=== PATIENT | male | born 1985 ===

== ENCOUNTER 2017-04-04 00:20 | Emergency (ER) | payer OTHER, MEDICAID ==
[2017-04-04 00:26] VITALS: BP 118/78; PULSE 82; RESP 16; TEMP 98.2; O2SAT 97
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
== END 2017-04-04 03:47 | disposition home or self-care (01) ==
LOC: H.ER 00:20
DX: S80.11XA Contusion of right lower leg, initial encounter (principal); M54.9 Dorsalgia, unspecified; V43.52XA Car driver injured in collision with other type car in traffic accident, initial encounter; Y92.410 Unspecified street and highway as the place of occurrence of the external cause

== ENCOUNTER 2017-09-21 08:06 | Day surgery (SDC) | payer MEDICAID ==
[2017-09-21] MEDS ORDERED: Lactated Ringer's 1,000 ML IV ONE (08:28)
[2017-09-21 08:45] VITALS: TEMP 96.8
[2017-09-21] MEDS ORDERED: Propofol 10 mg/ml Inj (20 ML) ONE (08:49)
[2017-09-21] MEDS ORDERED: Midazolam 2 MG/2 ML VIAL ONE (08:49)
[2017-09-21 09:36] VITALS: BP 99/53; PULSE 58; RESP 14; O2SAT 97
== END 2017-09-21 11:00 | disposition home or self-care (01) ==
LOC: H.ENDO 08:06
PROVIDERS: ATTEND Internal Medicine Gastroenterology
DX: K30 Functional dyspepsia (principal); K25.9 Gastric ulcer, unspecified as acute or chronic, without hemorrhage or perforation; K75.9 Inflammatory liver disease, unspecified; K29.50 Unspecified chronic gastritis without bleeding; B19.20 Unspecified viral hepatitis C without hepatic coma
CPT/HCPCS: 43239; 88305; J2250; J2704; J7120

== ENCOUNTER 2017-12-23 08:43 | Day surgery (SDC) | payer MEDICAID ==
[2017-12-23] MEDS ORDERED: Lactated Ringer's 500 ML IV ONE ×2 (08:53→10:57)
[2017-12-23] MEDS ORDERED: Lidocaine PF 2% (5 ml) Inj (For Cardiac Arrhy) IV ONE (10:44)
[2017-12-23] MEDS ORDERED: Propofol 10 mg/ml Inj (20 ML) ONE (10:44)
[2017-12-23 10:58] VITALS: TEMP 97
[2017-12-23 11:20] VITALS: BP 105/53; PULSE 59; RESP 17; O2SAT 99
== END 2017-12-23 11:25 | disposition home or self-care (01) ==
LOC: H.ENDO 08:43
PROVIDERS: ATTEND Internal Medicine Gastroenterology
DX: K30 Functional dyspepsia (principal); E78.5 Hyperlipidemia, unspecified; K31.9 Disease of stomach and duodenum, unspecified; K25.9 Gastric ulcer, unspecified as acute or chronic, without hemorrhage or perforation
CPT/HCPCS: 43239; 88305; J2704; J7120